=== PATIENT | male | born 1960 | race Caucasian/White ===

== ENCOUNTER 2018-01-13 12:28 | Emergency (ER) | payer OTHER, MEDICARE ==
[~2018-01-13 12:28] MED LIST changes: -LOR5/325 PO; -METH-543 PO
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
[2018-01-13] MEDS ORDERED: KETOROLAC 15 MG/ML VIAL IVP ONE (12:35)
[2018-01-13] MEDS ORDERED: NS(*) 0.9% 500 ML BAG 500 ML IV ONE (12:35)
[2018-01-13] MEDS ORDERED: IOPAMIDOL 76% 75 ML INFUS BTL 75 ML ONE (12:42)
[2018-01-13] MEDS ORDERED: HYDROmorphone* 1 MG/ML 1 MG/ML ML IVP ONE (13:55)
[2018-01-13] MEDS ORDERED: LOR5/325 PO (14:23)
[2018-01-13] MEDS ORDERED: METH-543 PO (14:23)
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
[2018-01-13] MEDS ORDERED: ORPHENADRINE 60MG/2ML INJ IVP ONE (16:05)
[2018-01-13 16:28] VITALS: BP 182/135
== END 2018-01-13 16:15 | disposition home or self-care (01) ==
LOC: ER 12:30
DX: M54.5 Low back pain (principal); M54.2 Cervicalgia
CPT/HCPCS: 36415; 70450; 72125; 72128; 72131; 74177; 96361; 96374; 96375; 99284; J1170; J1885; J2360; J7040; Q9967; 82310; 82374; 82435; 82565; 82947; 84132; 84295; 84520

== ENCOUNTER → 2018-01-13 | Outpatient (CLI) | payer OTHER, MEDICARE ==
[~2018-01-13] MED LIST: AMLO-101 PO; AMLO-99 PO; ASPI-1471 PO; ATE50 PO; CLON-327 PO; CLON-329 PO; CLON0.3T35 PO; CYC10 PO; DIA10 PO; DIA5 PO; GAB300 PO; GABA-1 PO; HYD2 PO; HYDR12.561 PO; HYDR25TA66 PO; HYDR50TA35 PO; INDO-1 PO; LID5T TOP; LIS20 PO; LISI-350 PO; LISI-368 PO; LISI20TA29 PO; LOR5/325 PO; METH-543 PO; METO-231 PO; METO-235 PO; OXYC-375 PO; OXYC-717 PO; OXYC-865 PO; OXYC20OR PO; OXYC20TA77 PO; OXYC40TA57 PO; OXYC5SOL14 PO; PAN40 PO; PANT40TA65 PO; PER PO; PRED-420 PO; PRED20TA6 PO; PRO25 PO; RANI-318 PO
== END ==
LOC: AMB 12:06
PROVIDERS: ATTEND Nurse Practitioner
DX: M54.9 Dorsalgia, unspecified (principal); M54.2 Cervicalgia; R10.12 Left upper quadrant pain; R10.11 Right upper quadrant pain; V43.52XA Car driver injured in collision with other type car in traffic accident, initial encounter; Y92.414 Local residential or business street as the place of occurrence of the external cause
CPT/HCPCS: A0425; A0427